=== PATIENT | male | born 1935 | race Caucasian/White ===

== ENCOUNTER 2017-07-28 07:41 | Day surgery (SDC) | payer MEDICARE, OTHER ==
[2017-07-28] MEDS ORDERED: LIDOCAINE 2% MDV (20MG/ML) 20ML VIAL IV ONE (07:42)
[2017-07-28] MEDS ORDERED: PROPOFOL 10 MG/ML VIAL IV ONE (07:42)
--- NOTE | 2017-07-28 14:20 | Operative Note ---
DATE OF SURGERY: 07/28/2017 OPERATION: COLONOSCOPY. INDICATION: Prior history of adenomatous polyps. The patient returns at this time for surveillance. He denies current GI problems. ANESTHESIA: Intravenous sedation was administered by the department of anesthesiology and included Diprivan titrated to effect. PROCEDURE: Following informed consent from this alert individual including a discussion of the risks and benefits of the procedure and an opportunity for the patient to ask questions, the patient was in the left lateral decubitus position. A digital rectal examination was performed. No abnormalities were noted. Following this, the Olympus [id number] video colonoscope was inserted into the rectum without resistance. The rectal mucosa had a normal appearance with normal folds and distensibility. The colonoscope was advanced up through a somewhat redundant colon to the level of the area of the hepatic flexure. Throughout the bowel the mucosa appeared normal, the folds were normal, and the bowel was fairly well distensible. The colon preparation was good. There was a small amount of retained liquid and semi-solid stool noted which was washed and suctioned as best possible. Multiple attempts at identifying the cecum were unsuccessful despite abdominal pressure support by the nursing staff and placing the patient in a supine position also with abdominal pressure support. It was not clear that the cecum was ever reached. He could have had a high-riding cecum under the right rib cage but again, this was not clear. After multiple attempts to evaluate the cecal base were unsuccessful, the colonoscope was then slowly withdrawn. No polyps were noted upon withdrawal. No additional changes were appreciated. Retroflexion in the rectum was endoscopically normal. The instrument was removed. The patient tolerated the procedure well and was returned to the recovery area in stable condition. IMPRESSION: 1. A redundant colon but an unremarkable mucosa as visualized. 2. It is not clear that the cecum was ever reached as described above. RECOMMENDATIONS: At this point, I would recommend a barium enema x-ray to further evaluate the right colon. Further recommendations will be forthcoming at that time. As always, thank you for allowing me to participate in the care of your patient. CC: Hakeem CHERY
== END 2017-07-28 10:00 | disposition home or self-care (01) ==
LOC: HOP 07:41
PROVIDERS: ATTEND Internal Medicine Gastroenterology
DX: Z12.11 Encounter for screening for malignant neoplasm of colon (principal); Z86.010 Personal history of colon polyps; Z53.09 Procedure and treatment not carried out because of other contraindication; I10 Essential (primary) hypertension; E78.00 Pure hypercholesterolemia, unspecified; E11.9 Type 2 diabetes mellitus without complications; Z79.4 Long term (current) use of insulin; C94.81 Other specified leukemias, in remission
CPT/HCPCS: 00810; G0105